=== PATIENT | female | born 1995 | race African-American/Black ===

== ENCOUNTER 2017-12-20 03:10 | Emergency (ER) | payer SELFPAY ==
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
[2017-12-20] MEDS ORDERED: AMOXICILLIN TR/POT CLAVULANATE 500-125 MG TAB PO ONE (08:23)
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
[2017-12-20 09:52] VITALS: BP 110/62
== END 2017-12-20 09:30 | disposition home or self-care (01) ==
LOC: ER 03:10
DX: S61.451A Open bite of right hand, initial encounter (principal); Y04.1XXA Assault by human bite, initial encounter
CPT/HCPCS: 99283